=== PATIENT | male | born 1975 | race Caucasian/White ===

== ENCOUNTER 2021-09-17 14:54 | Observation (INO) ==
--- NOTE | 2021-09-17 15:24 | ED Triage Note ---
Date of Service September 17, 2021 History of Present Illness This patient was briefly evaluated while in triage. An abbreviated physical exam was performed. This patient is a 46-year-old Male with concerns of food poisoning starting last thursday. It started with symptoms shortly after eating a hoagie. He initially felt hot and cold, trouble sleeping. The following day he noted nausea, and decreased appetite. He notes a headache since onset of symptoms, fever, chills, occasional sweats. No abd pain. He notes a little diarrhea. No medical problems. Physical Exam GENERAL: 46 year old male. In no acute distress. SKIN: No lesions or rashes. HEART: Regular rate and rhythm. LUNGS: Clear to auscultation. ABDOMEN: Bowel sounds normoactive. No guarding or rigidity. No tenderness of palpation. NEURO: Alert and oriented. No deficits. MUSCULOSKELETAL: No deformities to inspection of the extremities. PSYCH: Patient is pleasant and answers all questions appropriately. Initial orders for labs and / or imaging were placed and patient was placed in the waiting area until a bed is available. Please see further documentation for the full ED course.
[2021-09-17 15:44] LABS: Basophils # (auto) 0.04 K/uL (0-0.2); Basophils % (auto) 0.4 %; Eosinophils # (auto) 0.01 K/uL (0-0.50); Eosinophils % (auto) 0.1 %; Hematocrit (blood only) 43.4 % (40.1-51.0); Hemoglobin 14.8 g/dl (14.0-18.0); Immature Granulocytes # (auto) 0.06 K/uL (0.00-0.02); Immature Granulocytes % (auto) 0.5 %; Lymphocytes # (auto) 0.47 K/uL (1.2-3.4); Lymphocytes % (auto) 4.1 %; Mean Corpuscular Hemoglobin 29.4 pg (25.0-34.0); Mean Corpuscular Hgb Conc 34.1 g/dL (32.0-36.0); Mean Corpuscular Volume 86.3 fL (80.0-100.0); Mean Platelet Volume 10.3 fL (9.4-12.4); Monocytes # (auto) 0.59 K/uL (0.24-0.82); Monocytes % (auto) 5.2 %; Neutrophils # (auto) 10.16 K/uL (1.4-6.5); Neutrophils % (auto) 89.7 %; Platelet Count 219 K/uL (130-400); RDW Coefficient of Variation 13.3 % (11.5-14.5); RDW Standard Deviation 41.6 fL (36.4-46.3); Red Blood Count 5.03 M/uL (4.63-6.08); White Blood Count 11.33 K/ul (4.8-10.8)
[2021-09-17 16:09] LABS: Albumin Level 3.7 gm/dl (3.4-5.0); BUN Creatinine Ratio 6.6 (10-20); Bilirubin,Total 0.6 mg/dl (0.2-1.0); Calcium 8.1 mg/dl (8.5-10.1); Est GFR (African American) 42.3 ml/min; Est GFR (Non-African American) 36.5 ml/min; Globulin 3.8 gm/dl (2.5-4.0); Magnesium 1.9 mg/dl (1.7-2.4); Total Protein 7.5 gm/dl (6.0-8.3)
--- NOTE | 2021-09-17 16:53 | Emergency Department Note ---
Impression & Plan DONNA (acute kidney injury), Diarrhea, Generally unwell ED Provider Note CHIEF COMPLAINT: Feeling generally unwell HISTORY OF PRESENT ILLNESS: Levi Ruiz is a 46 year old male with history of hypothyroidism who presents to the Emergency Department for evaluation as he has been feeling generally unwell over the past week. Initially, the patient states that he felt as if he got food poisoning after eating a hoagie. Since then, he has felt intermittently feverish/chilled with cold sweats, has had headaches, decreased appetite with poor PO intake, intermittent nausea and watery diarrhea. The patient denies specific abdominal pain and has not vomited. He also denies hematochezia or melena. He has had decreased output of urine but no dysuria or hematuria. Currently, the patient denies being in any specific pain but states that he just doesn't feel good. He also feels tired as he has not been sleeping well. He has not been taking any medications for his symptoms. He otherwise denies having chest pain, respiratory difficulties or palpitations. He has not been around anyone else who has been ill with similar symptoms. REVIEW OF SYSTEMS: 10 systems were reviewed and were negative unless otherwise stated in HPI as above PHYSICAL EXAM: VITALS: Vitals are noted on the nurse's note and reviewed by myself. Vital signs stable. General: Resting in bed, no acute distress HEENT: Normocephalic, PERRL, EOMI, mucous membranes moist, oropharynx clear without erythema, edema or exudates Neck: Supple, non-tender, no lymphadenopathy, FROM without pain, no meningismus Resp: Good inspiratory effort on room air, lung sounds clear bilaterally, chest wall non-tender CV: Regular rate and rhythm, normal S1-S2, peripheral pulses palpated Back: No tenderness to palpation of the bilateral CVA or flanks Abd: Obese, soft, non-tender to palpation, no rebound, guarding or rigidity MSK: Moving all extremities without apparent pain or difficulty Integumentary: Warm, dry, no appreciable rash Neuro: Awake, alert and oriented x 3, interacting and answering questions appropriately Differential diagnosis includes etiologies such as viral syndrome, COVID-19, urinary tract infection, sepsis, bacteremia, food poisoning, dehydration, electrolyte imbalances, diarrheal illness, DONNA, gastrointestinal pathology, among others were considered. EMERGENCY DEPARTMENT COURSE: Physical exam and history were performed. Nursing triage notes, EMR, and medication list were personally reviewed. Patient appears presents for evaluation as he has been feeling generally unwell with intermittent perceived fever/chills, headaches, decreased appetite with poor p.o. intake, intermittent nausea and watery diarrhea. Additional history as described above. See physical exam as noted above. The patient was offered medications. IV access was established. He was given Tylenol 1000 mg and 2 L NSS throughout his emergency department course. Labs were obtained and reviewed by myself as below. Of note, he does have leukocytosis with a WBC of 11.33. No concern for anemia with hemoglobin 14.8. Mild hyponatremia with sodium 134. Hypokalemia with potassium 3.0. Concerns for DONNA with creatinine 2.12. LFTs WNL. Lipase WNL. Stool culture ordered, pending collection. Urinalysis was obtained and was cloudy in appearance with 3+ protein, trace glucose, trace ketones, 1+ blood, 1+ bilirubin, trace leukocyte esterase, 1030 WBCs, greater than 30 hyaline casts and mucus present. Possible contamination with >30 epithelial cells. CAT scan of the abdomen/pelvis without contrast was obtained and reviewed by radiologist myself as below. The bladder wall appears circumferentially thickened and there was nonspecific bilateral perinephric stranding. Hepatomegaly and hepatic steatosis. Mild splenomegaly. Upon reevaluation, the patient was doing well but still had a headache. I discussed the results of the above findings with him at bedside. His work-up is concerning for DONNA. I do feel that he would benefit from continued monitoring in the hospital given this finding. I did call and speak to Dr. Hi of the [facility]. He agreed to evaluate the patient. The patient verbalizes understanding and agreement with the treatment plan as above. The chart was completed utilizing [employer] Speech Voice Recognition Software. Grammatical errors, random word insertions, pronoun errors, and incomplete sentences are an occasional consequence of this system due to software limitations, ambient noise, and hardware issues. Any formal questions or concerns about the content, text, or information contained within the body of this dictation should be directly addressed to the provider for clarification. Past Med/Surg History Medical History Hypothyroidism Surgical History (Updated 09/17/21 @ 21:35 by Patsy Burgos PA-C) No pertinent past surgical history Social History Smoking Status: Never smoker Preferred Language: [place] Feels Safe at Home: Yes Allergies Allergies Allergy/AdvReac Type Severity Reaction Status Date / Time No Known Allergies Allergy Mild Verified 09/17/21 18:50 Home Meds Home Medications Medication Instructions Recorded Confirmed levothyroxine 125 mcg tablet 125 mcg PO DAILY 09/17/21 09/17/21 (Euthyrox) Results & Data (ED) Vital Signs Vital Signs - 24 hr 09/17/21 15:21 09/17/21 16:30 09/17/21 16:31 Temperature 36.1 C L Temperature Source Temporal Artery Scan Pulse Rate 114 H 101 H Pulse Rate [Finger] Pulse Rate from SpO2 Sensor 98 H Pulse Rhythm Regular Pulse Strength Normal Respiratory Rate 20 24 Respiratory Effort / Characteristics Non-Labored Spontaneous Respiratory Depth Normal Respiratory Pattern Regular Blood Pressure 129/83 145/77 H Blood Pressure [Right Arm] Blood Pressure Mean 98 99 Blood Pressure Mean [Right Arm] Blood Pressure Position Sitting Pulse Oximetry 95 95 Oxygen Delivery Method Room Air Sepsis Recent Fever Within 48 Hours Yes Sepsis New/Unexplained Change in Mental Status No Sepsis Action Taken by Nursing No Action Required 09/17/21 17:00 09/17/21 17:00 09/17/21 17:34 Temperature Temperature Source Pulse Rate 96 H Pulse Rate [Finger] Pulse Rate from SpO2 Sensor 98 H 94 H Pulse Rhythm Pulse Strength Respiratory Rate 25 H Respiratory Effort / Characteristics Respiratory Depth Respiratory Pattern Blood Pressure 178/93 H Blood Pressure [Right Arm] Blood Pressure Mean 121 Blood Pressure Mean [Right Arm] Blood Pressure Position Pulse Oximetry 95 93 Oxygen Delivery Method Sepsis Recent Fever Within 48 Hours Sepsis New/Unexplained Change in Mental Status Sepsis Action Taken by Nursing 09/17/21 17:35 09/17/21 17:35 09/17/21 18:00 Temperature Temperature Source Pulse Rate 97 H Pulse Rate [Finger] Pulse Rate from SpO2 Sensor 96 H Pulse Rhythm Pulse Strength Respiratory Rate 25 H Respiratory Effort / Characteristics Respiratory Depth Respiratory Pattern Blood Pressure 128/89 124/79 Blood Pressure [Right Arm] Blood Pressure Mean 102 94 Blood Pressure Mean [Right Arm] Blood Pressure Position Pulse Oximetry 94 Oxygen Delivery Method Sepsis Recent Fever Within 48 Hours Sepsis New/Unexplained Change in Mental Status Sepsis Action Taken by Nursing 09/17/21 18:00 09/17/21 18:30 09/17/21 18:30 Temperature Temperature Source Pulse Rate 87 86 Pulse Rate [Finger] Pulse Rate from SpO2 Sensor 86 85 Pulse Rhythm Pulse Strength Respiratory Rate 38 H 25 H Respiratory Effort / Characteristics Respiratory Depth Respiratory Pattern Blood Pressure 123/82 Blood Pressure [Right Arm] Blood Pressure Mean 95 Blood Pressure Mean [Right Arm] Blood Pressure Position Pulse Oximetry 96 98 Oxygen Delivery Method Sepsis Recent Fever Within 48 Hours Sepsis New/Unexplained Change in Mental Status Sepsis Action Taken by Nursing 09/17/21 20:00 Temperature Temperature Source Pulse Rate Pulse Rate [Finger] 88 Pulse Rate from SpO2 Sensor Pulse Rhythm Pulse Strength Respiratory Rate 18 Respiratory Effort / Characteristics Respiratory Depth Respiratory Pattern Blood Pressure Blood Pressure [Right Arm] 131/79 Blood Pressure Mean Blood Pressure Mean [Right Arm] 96 Blood Pressure Position Pulse Oximetry 98 Oxygen Delivery Method Room Air Sepsis Recent Fever Within 48 Hours Sepsis New/Unexplained Change in Mental Status Sepsis Action Taken by Nursing Laboratory Data Result diagrams: 09/17/21 15:35 09/17/21 15:35 Lab Results 09/17/21 09/17/21 09/17/21 Range/Units 15:35 15:35 16:25 WBC 11.33 H (4.8-10.8) K/ul RBC 5.03 (4.63-6.08) M/uL Hgb 14.8 (14.0-18.0) g/dl Hct 43.4 (40.1-51.0) % MCV 86.3 (80.0-100.0) fL MCH 29.4 (25.0-34.0) pg MCHC 34.1 (32.0-36.0) g/dL RDW Std Deviation 41.6 (36.4-46.3) fL RDW Coeff of Fredis 13.3 (11.5-14.5) % Plt Count 219 (130-400) K/uL MPV 10.3 (9.4-12.4) fL Immature Gran % (Auto) 0.5 % Neut % (Auto) 89.7 % Lymph % (Auto) 4.1 % Dickens % (Auto) 5.2 % Eos % (Auto) 0.1 % Baso % (Auto) 0.4 % Neut # (Auto) 10.16 H (1.4-6.5) K/uL Lymph # (Auto) 0.47 L (1.2-3.4) K/uL Dickens # (Auto) 0.59 (0.24-0.82) K/uL Eos # (Auto) 0.01 (0-0.50) K/uL Baso # (Auto) 0.04 (0-0.2) K/uL Immature Gran # (Auto) 0.06 H (0.00-0.02) K/uL Sodium 134 L (136-145) mmol/L Potassium 3.0 L (3.5-5.1) mmol/L Chloride 97 L (98-107) mmol/L Carbon Dioxide 27 (21-32) mmol/L Anion Gap 10 (3-11) BUN 14 (6-23) mg/dl Creatinine 2.12 H (0.6-1.4) mg/dl Est Cr Clr Drug Dosing 64.0 ml/min Est GFR ( Amer) 42.3 ml/min Est GFR (Non-Af Amer) 36.5 ml/min BUN/Creatinine Ratio 6.6 L (10-20) Glucose 148 H (70-99(Fasting)) mg/dl Calcium 8.1 L (8.5-10.1) mg/dl Magnesium 1.9 (1.7-2.4) mg/dl Total Bilirubin 0.6 (0.2-1.0) mg/dl AST 23 (13-39) U/L ALT 44 (7-52) U/L Alkaline Phosphatase 78 (34-104) U/L Total Protein 7.5 (6.0-8.3) gm/dl Albumin 3.7 (3.4-5.0) gm/dl Globulin 3.8 (2.5-4.0) gm/dl Albumin/Globulin Ratio 1.0 (0.9-2) Lipase 11 (11-82) U/L Urine Color Urine Appearance (Clear) Urine pH (4.5-7.5) Ur Specific [place] (1.000-1.030) Urine Protein (Negative) Urine Glucose (UA) (Negative) Urine Ketones (Negative) Urine Blood (Negative) Urine Nitrite (Negative) Urine Bilirubin (Negative) Urine Urobilinogen (Negative) Ur Leukocyte Esterase (Negative) Urine WBC (Auto) (0-5) /hpf Urine RBC (Auto) (0-4) /hpf U Hyaline Cast (Auto) (0-5) /lpf U Epithel Cells (Auto) (0-5) /lpf Urine Bacteria (Auto) (Negative) Ur Renal Epithelial Cell Urine Mucus (None Prsent) Urine Yeast SARS-CoV-2, RNA, NAAT NEGATIVE (NEGATIVE) 09/17/21 Range/Units 17:27 WBC (4.8-10.8) K/ul RBC (4.63-6.08) M/uL Hgb (14.0-18.0) g/dl Hct (40.1-51.0) % MCV (80.0-100.0) fL MCH (25.0-34.0) pg MCHC (32.0-36.0) g/dL RDW Std Deviation (36.4-46.3) fL RDW Coeff of Fredis (11.5-14.5) % Plt Count (130-400) K/uL MPV (9.4-12.4) fL Immature Gran % (Auto) % Neut % (Auto) % Lymph % (Auto) % Dickens % (Auto) % Eos % (Auto) % Baso % (Auto) % Neut # (Auto) (1.4-6.5) K/uL Lymph # (Auto) (1.2-3.4) K/uL Dickens # (Auto) (0.24-0.82) K/uL Eos # (Auto) (0-0.50) K/uL Baso # (Auto) (0-0.2) K/uL Immature Gran # (Auto) (0.00-0.02) K/uL Sodium (136-145) mmol/L Potassium (3.5-5.1) mmol/L Chloride (98-107) mmol/L Carbon Dioxide (21-32) mmol/L Anion Gap (3-11) BUN (6-23) mg/dl Creatinine (0.6-1.4) mg/dl Est Cr Clr Drug Dosing ml/min Est GFR ( Amer) ml/min Est GFR (Non-Af Amer) ml/min BUN/Creatinine Ratio (10-20) Glucose (70-99(Fasting)) mg/dl Calcium (8.5-10.1) mg/dl Magnesium (1.7-2.4) mg/dl Total Bilirubin (0.2-1.0) mg/dl AST (13-39) U/L ALT (7-52) U/L Alkaline Phosphatase (34-104) U/L Total Protein (6.0-8.3) gm/dl Albumin (3.4-5.0) gm/dl Globulin (2.5-4.0) gm/dl Albumin/Globulin Ratio (0.9-2) Lipase (11-82) U/L Urine Color Dark Yellow Urine Appearance Cloudy A (Clear) Urine pH 5.5 (4.5-7.5) Ur Specific [place] 1.020 (1.000-1.030) Urine Protein 3+ H (Negative) Urine Glucose (UA) Trace H (Negative) Urine Ketones Trace H (Negative) Urine Blood 1+ H (Negative) Urine Nitrite Negative (Negative) Urine Bilirubin 1+ H (Negative) Urine Urobilinogen Negative (Negative) Ur Leukocyte Esterase Trace H (Negative) Urine WBC (Auto) 10-30 H (0-5) /hpf Urine RBC (Auto) 0-4 (0-4) /hpf U Hyaline Cast (Auto) >30 H (0-5) /lpf U Epithel Cells (Auto) >30 H (0-5) /lpf Urine Bacteria (Auto) Negative (Negative) Ur Renal Epithelial Cell Not Reportable Urine Mucus Present A (None Prsent) Urine Yeast Not Reportable SARS-CoV-2, RNA, NAAT (NEGATIVE) Administered Medications Discontinued Medications Acetaminophen (Acetaminophen 500 Mg Tab) 1,000 mg PO NOW STA Stop: 09/17/21 19:56 Last Admin: 09/17/21 20:05 Dose: 1,000 mg Documented By: ROSA Sodium Chloride (Nss 1000ml) 1,000 mls @ 999 mls/hr IV .Q1H1M MEREDITH Stop: 09/17/21 18:09 Last Infusion: 09/17/21 18:41 Dose: 0 mls/hr Documented By: Admin: 09/17/21 17:32 Dose: 999 mls/hr Documented By: [id number] Sodium Chloride (Nss 1000ml) 1,000 mls @ 999 mls/hr IV .Q1H1M MEREDITH Stop: 09/17/21 20:56 Last Admin: 09/17/21 20:05 Dose: 999 mls/hr Documented By: Imaging Data Radiologist's Impression: Abdomen/Pelvis CT 09/17/21 17:08 CT SCAN OF THE ABDOMEN AND PELVIS WITHOUT IV CONTRAST CLINICAL HISTORY: Diarrhea. Loss of appetite. Renal insufficiency. COMPARISON STUDY: No priors. TECHNIQUE: CT scan of the abdomen and pelvis is performed from the lung bases to the proximal femora. Images are reviewed in the axial, sagittal, and coronal planes. IV contrast was not administered for this examination due to poor renal function. Note that the examination is suboptimal without oral and IV contrast. A dose lowering technique was utilized adhering to the principles of ALARA. CT DOSE: 1656.41 mGy.cm FINDINGS: Lung bases: The heart is normal in size and without pericardial effusion. The lung bases are clear noting dependent atelectasis. A small hiatal hernia is observed. Liver: The unenhanced liver is enlarged, measuring 22.0 cm in length. The liver demonstrates diffusely diminished attenuation consistent with hepatic steatosis. There is no intrahepatic biliary ductal dilatation. Gallbladder: Unremarkable. Spleen: The spleen is mildly enlarged measuring 14.5 cm in length. Pancreas: Unremarkable. Adrenal glands: Unremarkable. Kidneys: The unenhanced kidneys are normal in size and without hydronephrosis. There are no renal calculi identified. There is no evidence of contour deforming renal mass lesion. There is mild nonspecific bilateral perinephric stranding. Abdominal vasculature: The abdominal aorta is normal in course and caliber. Bowel: There is no bowel obstruction. The appendix is not visualized. Peritoneum: There is no intraperitoneal free air or abdominal ascites. There is a small fat-containing umbilical hernia. Lymphadenopathy: None. Pelvic viscera: The bladder wall appears circumferentially thickened. The prostate and seminal vesicles are normal as visualized. Skeletal structures: No lytic or blastic lesions are seen. Mild sclerotic change is seen in the sacroiliac joints. IMPRESSION: 1. The bladder wall appears circumferentially thickened and there is nonspecific bilateral perinephric stranding. Correlate with clinical findings and urinalysis. 2. Hepatomegaly and hepatic steatosis. 3. Mild splenomegaly. 4. Nonvisualization of the appendix. 5. Additional findings as above. ACT 112: Negative or not required by law. Electronically signed by: Owen French M.D. 09/17/2021 7:40 PM Discharge Plan Visit Data Chief Complaint: Nausea Stated Complaint: NAUSEA, VOMITING, CHILLS, FEVER ED Provider: Robby Cohn ED Midlevel Provider: Patsy Burgos Discharge Problem: DONNA (acute kidney injury), Diarrhea, Generally unwell Patient Disposition: Admitted As Inpatient Forms Stand Alone Forms: [facility] Prescriptions Prescriptions: No Action levothyroxine [Euthyrox] 125 mcg tablet 125 mcg PO DAILY Referrals Referrals: Terence Méndez MD [Primary Care Provider] -
[2021-09-17] MEDS ORDERED: SODIUM CHLORIDE 0.9% 1000ML 1,000 ML IV SCH ×2 (17:09→19:56)
[2021-09-17 18:14] LABS: Appearance Urine Cloudy (Clear); Bacteria Urine Automated Negative (Negative); Blood Urine 1+ (Negative); Color Urine Dark Yellow; Epithelial Cell Urine Auto >30 /lpf (0-5); Glucose Urine UA Trace (Negative); Ketones Urine Trace (Negative); Leukocyte Esterase Urine Trace (Negative); Nitrite Urine Negative (Negative); Protein Urine 3+ (Negative); RBC Urine Automated 0-4 /hpf (0-4); Urobilinogen Urine Negative (Negative); pH Urine 5.5 (4.5-7.5)
[2021-09-17 18:29] LABS: Bilirubin Urine 1+ (Negative)
[2021-09-17 18:56] LABS: Cast Urine Automated >30 /lpf (0-5); Mucus Urine Present (None Prsent)
--- NOTE | 2021-09-17 19:42 | CT Scan Report ---
CT SCAN OF THE ABDOMEN AND PELVIS WITHOUT IV CONTRAST CLINICAL HISTORY: Diarrhea. Loss of appetite. Renal insufficiency. COMPARISON STUDY: No priors. TECHNIQUE: CT scan of the abdomen and pelvis is performed from the lung bases to the proximal femora. Images are reviewed in the axial, sagittal, and coronal planes. IV contrast was not administered for this examination due to poor renal function. Note that the examination is suboptimal without oral an d IV contrast. A dose lowering technique was utilized adhering to the principles of ALARA. CT DOSE: 1656.41 mGy.cm FINDINGS: Lung bases: The heart is normal in size and without pericardial effusion. The lung bases are clear no ting dependent atelectasis. A small hiatal hernia is observed. Liver: The unenhanced liver is enlarged, measuring 22.0 cm in length. The liver demonstrates diffusel y diminished attenuation consistent with hepatic steatosis. There is no intrahepatic biliary ductal d ilatation. Gallbladder: Unremarkable. Spleen: The spleen is mildly enlarged measuring 14.5 cm in length. Pancreas: Unremarkable. Adrenal glands: Unremarkable. Kidneys: The unenhanced kidneys are normal in size and without hydronephrosis. There are no renal nick culi identified. There is no evidence of contour deforming renal mass lesion. There is mild nonspecif ic bilateral perinephric stranding. Abdominal vasculature: The abdominal aorta is normal in course and caliber. Bowel: There is no bowel obstruction. The appendix is not visualized. Peritoneum: There is no intraperitoneal free air or abdominal ascites. There is a small fat-containin g umbilical hernia. Lymphadenopathy: None. Pelvic viscera: The bladder wall appears circumferentially thickened. The prostate and seminal vesicl es are normal as visualized. Skeletal structures: No lytic or blastic lesions are seen. Mild sclerotic change is seen in the sacro iliac joints. IMPRESSION: 1. The bladder wall appears circumferentially thickened and there is nonspecific bilateral perinephri c stranding. Correlate with clinical findings and urinalysis. 2. Hepatomegaly and hepatic steatosis. 3. Mild splenomegaly. 4. Nonvisualization of the appendix. 5. Additional findings as above. ACT 112: Negative or not required by law. Electronically signed by: Owen French M.D. 09/17/2021 7:40 PM
[2021-09-17] MEDS ORDERED: ACETAMINOPHEN 500 MG TAB PO STA (19:55)
--- NOTE | 2021-09-17 21:09 | History & Physical Report ---
Date of Service September 17, 2021 Assessment & Plan (1) Diarrhea: Plan: 46yo male with a history of hypothyroidism presents with a one-week history of fever, chills, headache, nausea, diarrhea, and poor appetite. Fever, chills, nausea, diarrhea, poor appetite Vitals upon arrival notable for intermittently elevated BP, tachycardia (114), and tachypnea; patient afebrile, SpO2 adequate on room air Initial labs were notable for mild leukocytosis (11.3), mild hyponatremia (134), mild hypokalemia (3.0), and elevated creatinine (2.12) UA questionably contaminated but was otherwise notable for 3+ protein, 1+ blood, trace leuk esterase, 10-30 WBCs, and >30 hyaline casts; patient denies dysuria CT abdomen/pelvis showed circumferential bladder wall thickening with nonspecific bilateral perinephric stranding, hepatomegaly and hepatic steatosis, and mild splenomegaly Differential broad but includes viral gastroenteritis, UTI, bacteremia, others In the ED, patient received NSS 1L bolus (x2) and APAP 1000mg (x1) Stool culture, urine culture, blood cultures pending Ceftriaxone as noted below NSS @ 125mL/hr (x2 bags ordered) APAP 1000mg q8h as-needed for fever or pain Zofran as-needed for nausea Trend daily CBC, BMP, magnesium, phosphorous UTI vs asymptomatic bacteriuria UA questionably contaminated but was otherwise notable for 3+ protein, 1+ blood, trace leuk esterase, 10-30 WBCs, and >30 hyaline casts; patient denies dysuria Patient endorses slightly reduced urinary frequency but no burning with urination or urinary urgency, incomplete voiding, or mally hematuria CT abdomen/pelvis showed circumferential bladder wall thickening with nonspecific bilateral perinephric stranding Despite absent urinary symptoms, given findings on UA, imaging, and mild leukocytosis, will treat as UTI Avoiding oral bactrim due to potential interaction between trimethoprim and oral potassium supplementation Ceftriaxone 1g IV daily (x3 days), transition to oral when appropriate Trend daily CBC DONNA vs CKD Creatinine on admission 2.12, baseline unknown Suspect pre-renal etiology given poor PO intake and diarrhea over the past week IVF as above Trend daily BMP, avoid nephrotoxins, encourage PO intake Hypokalemia Potassium on admission 3.0, suspected secondary to GI losses and poor PO intake; serum magnesium wnl EKG pending KCl 20mEq PO q2h (x4 doses) ordered Repeat BMP and serum magnesium in AM, additional repletion as needed Hypothyroidism Serum TSH ordered for AM; no prior records on hand Continue home levothyroxine 125mcg daily HbA1c and fasting lipid profile ordered for AM FEN: regular diet, NSS @ 125mL/hr (x2 bags ordered) Code status: full code DVT ppx: SCDs Held home meds: none Dispo: med/surg (2) DONNA (acute kidney injury): (3) Generally unwell: (4) Hypokalemia: (5) Hypocalcemia: (6) Nausea: History of Present Illness Primary Care Provider: Terence Méndez MD 46yo male with a history of hypothyroidism presents with a one-week history of fever, chills, headache, nausea, diarrhea, and poor appetite. Patient thought he had food poisoning after eating a hoagie last week, but his symptoms have not resolved. Diarrhea has been intermittent and watery, only 1-3 episodes per day, not oily or greasy, no blood in stool noted. Denies abdominal pain or vomiting. Patient has had a poor appetite and poor fluid intake - has been urinating less frequently than normal, but denies pain with urination, urinary urgency, incomplete voiding, or hematuria. No flank pain. Patient denies vision changes, CP, palpitations, SOB, dizziness, numbness, tingling, weakness, or other symptoms. Denies recent illness and recent travel. Vitals upon arrival were notable for intermittently elevated BP, tachycardia (114), and tachypnea. Patient was afebrile and SpO2 was adequate on room air. Initial labs were notable for mild leukocytosis (11.3), mild hyponatremia (134), mild hypokalemia (3.0), and elevated creatinine (2.12). UA was possibly contaminated given epithelial cells but was otherwise notable for 3+ protein, 1+ blood, trace leuk esterase, 10-30 WBCs, and >[address] abdomen/pelvis showed circumferential bladder wall thickening with nonspecific bilateral perinephric stranding, hepatomegaly and hepatic steatosis, and mild splenomegaly. In the ED, patient received NSS 1L bolus (x2) and APAP 1000mg (x1). Surrogate decision-maker in case of an emergency: Jesusita Ruiz (cell: [phone]) Allergies Allergy/AdvReac Type Severity Reaction Status Date / Time No Known Allergies Allergy Mild Verified 09/17/21 18:50 Home Medications Medication Instructions Recorded Confirmed Type levothyroxine 125 mcg tablet 125 mcg PO DAILY 09/17/21 09/17/21 History (Euthyrox) cefdinir 300 mg capsule 300 mg PO BID 4 days #8 caps 09/18/21 Rx Past Med/Surg History Medical History (Updated 09/17/21 @ 22:17 by Zeke Lin MD) Hypothyroidism Surgical History (Updated 09/17/21 @ 21:35 by Patsy Burogs PA-C) No pertinent past surgical history Social History Smoking Status: Never smoker Hx Alcohol Use: Yes Alcohol type: beer and wine Hx Substance Use: No Preferred Language: Luxembourger Communication Ability: Effective 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: No Beliefs That Will Affect Care: None Current Living Situation: Alone Feels Safe at Home: Yes Assistive Devices: None Physical Exam Physical Exam: Constitutional: well-appearing, no acute distress HEENT: NCAT, no conjunctival injection, MMM CV: regular rhythm, no murmur appreciated, extremities well-perfused, no LE edema Resp: CTABL, no wheezes/rales/rhonchi appreciated, no increased work of breathing GI: soft, nondistended, nontender, BS normoactive MSK: no flank tenderness Skin: warm, dry, no rash appreciated Neuro: alert, oriented, no focal neurologic deficit appreciated Results & Data Results & Data ([facility]) Vital Signs (Past 12 Hours) Vital Signs Temp Pulse Pulse Resp BP BP Pulse Ox 09/17/21 20:00 88 18 131/79 98 09/17/21 18:30 86 25 H 98 09/17/21 18:30 123/82 09/17/21 18:00 87 38 H 96 09/17/21 18:00 124/79 09/17/21 17:35 97 H 25 H 94 09/17/21 17:35 128/89 09/17/21 17:34 93 09/17/21 17:00 96 H 25 H 95 09/17/21 17:00 178/93 H 09/17/21 16:31 101 H 24 95 09/17/21 16:30 145/77 H 09/17/21 15:21 36.1 C L 114 H 20 129/83 95 O2 Del Method 09/17/21 20:00 Room Air 09/17/21 18:30 09/17/21 18:30 09/17/21 18:00 09/17/21 18:00 09/17/21 17:35 09/17/21 17:35 09/17/21 17:34 09/17/21 17:00 09/17/21 17:00 09/17/21 16:31 09/17/21 16:30 09/17/21 15:21 Room Air Supervising Physician Co-Signing Physician Notes Attending addendum: I have physically seen this patient, have supervised the medical residents activities, and agree with the H&P unless as otherwise noted. Assessment and Plan: Fevers/chills/nausea/diarrhea/poor appetite- CT abdomen and pelvis suggest potential urinary issue, along with hepatomegaly and hepatic steatosis and mild splenomegaly Differential including food ingestion, viral gastroenteritis prior, UTI, bacteremia and others Follow-up cultures: Stool, urine and blood NSS at 125 MLS per hour x2 additional liters Ceftriaxone 2 g IV daily Renal insufficiency/presumed acute- Creatinine 2.12 upon admission with unknown baseline IV fluids as noted above, and recheck laboratories in a.m. Hypokalemia- Sodium 3.0 upon admission Replete potassium and recheck laboratories in a.m. Remaining orders and notations as noted Resident Activity Tracking Resident Involvement: Resident Care Provided and Ear Nose And Throat Specialist Coverage Note Care Provided: Adult Hospital Medicine
[2021-09-17] MEDS ORDERED: MELATONIN 3 MG TAB PO PRN (22:03)
[2021-09-17] MEDS ORDERED: ACETAMINOPHEN 500 MG TAB PO PRN (22:03)
[2021-09-17] MEDS ORDERED: ONDANSETRON INJ 2 MG/ML 2 ML VIAL IV PRN (22:10)
[2021-09-17] MEDS ORDERED: LACTATED RINGER'S 1,000 ML IV SCH (22:15)
[2021-09-17] MEDS ORDERED: cefTRIAXone SODIUM 2,000 MG in DEXTROSE 5% 50 ML IV SCH (23:00)
[2021-09-17] MEDS: POTASSIUM CHLORIDE CRTAB 20 MEQ TABCR PO SCH (23:15)
[2021-09-18] MEDS: SODIUM CHLORIDE 0.9% 1000ML 1,000 ML IV SCH ×2 (00:10→06:04)
[2021-09-18] MEDS: POTASSIUM CHLORIDE CRTAB 20 MEQ TABCR PO SCH ×3 (00:28→04:22)
[2021-09-18] MEDS ORDERED: LEVOTHYROXINE SODIUM 125 MCG TABLET PO SCH (06:30)
[2021-09-18 07:11] LABS: Basophils # (auto) 0.02 K/uL (0-0.2); Basophils % (auto) 0.2 %; Hematocrit (blood only) 35.7 % (40.1-51.0); Hemoglobin 12.5 g/dl (14.0-18.0); Immature Granulocytes # (auto) 0.08 K/uL (0.00-0.02); Immature Granulocytes % (auto) 0.8 %; Lymphocytes # (auto) 0.42 K/uL (1.2-3.4); Lymphocytes % (auto) 4.3 %; Mean Corpuscular Hemoglobin 29.6 pg (25.0-34.0); Mean Corpuscular Volume 84.4 fL (80.0-100.0); Mean Platelet Volume 10.3 fL (9.4-12.4); Monocytes # (auto) 0.61 K/uL (0.24-0.82); Monocytes % (auto) 6.3 %; Neutrophils # (auto) 8.62 K/uL (1.4-6.5); Neutrophils % (auto) 88.4 %; Platelet Count 199 K/uL (130-400); RDW Coefficient of Variation 13.3 % (11.5-14.5); RDW Standard Deviation 41.6 fL (36.4-46.3); Red Blood Count 4.23 M/uL (4.63-6.08); White Blood Count 9.75 K/ul (4.8-10.8)
[2021-09-18 07:30] LABS: Estimated Average Glucose 123 mg/dl; Hemoglobin A1C 5.9 % (4.5-5.6)
[2021-09-18 07:49] LABS: BUN Creatinine Ratio 9.5 (10-20); Calcium 7.1 mg/dl (8.5-10.1); Creatinine Clr Calc Pharmacy 75.5 ml/min; Est GFR (African American) 51.9 ml/min; Est GFR (Non-African American) 44.8 ml/min; Magnesium 1.7 mg/dl (1.7-2.4); Potassium 2.9 mmol/L (3.5-5.1)
[2021-09-18] MEDS ORDERED: POTASSIUM CHLORIDE CRTAB 20 MEQ TABCR PO STA (10:03)
--- NOTE | 2021-09-18 10:53 | Electrocardiogram Report ---
Test Reason : Blood Pressure : / mmHG Vent. Rate : 075 BPM Atrial Rate : 075 BPM P-R Int : 148 ms QRS Dur : 104 ms QT Int : 410 ms P-R-T Axes : 050 027 020 degrees QTc Int : 457 ms Normal sinus rhythm Normal ECG No previous ECGs available Confirmed by Jose E Carson ([id number]) on 09/18/2021 10:53:13 AM Referred By: REFERRED SELF Confirmed By:Stanley Carson
--- NOTE | 2021-09-18 12:01 | Discharge Summary ---
Date of Service September 18, 2021 Admission HPI Per Admitting Provider 46yo male with a history of hypothyroidism presents with a one-week history of fever, chills, headache, nausea, diarrhea, and poor appetite. Patient thought he had food poisoning after eating a hoagie last week, but his symptoms have not resolved. Diarrhea has been intermittent and watery, only 1-3 episodes per day, not oily or greasy, no blood in stool noted. Denies abdominal pain or vomiting. Patient has had a poor appetite and poor fluid intake - has been urinating less frequently than normal, but denies pain with urination, urinary urgency, incomplete voiding, or hematuria. No flank pain. Patient denies vision changes, CP, palpitations, SOB, dizziness, numbness, tingling, weakness, or other symptoms. Denies recent illness and recent travel. Vitals upon arrival were notable for intermittently elevated BP, tachycardia (114), and tachypnea. Patient was afebrile and SpO2 was adequate on room air. Initial labs were notable for mild leukocytosis (11.3), mild hyponatremia (134), mild hypokalemia (3.0), and elevated creatinine (2.12). UA was possibly contaminated given epithelial cells but was otherwise notable for 3+ protein, 1+ blood, trace leuk esterase, 10-30 WBCs, and >[address] abdomen/pelvis showed circumferential bladder wall thickening with nonspecific bilateral perinephric stranding, hepatomegaly and hepatic steatosis, and mild splenomegaly. In the ED, patient received NSS 1L bolus (x2) and APAP 1000mg (x1). Surrogate decision-maker in case of an emergency: Jesusita Ruiz (cell: [phone]) Admission Exam Per Admitting Provider Constitutional: well-appearing, no acute distress HEENT: NCAT, no conjunctival injection, MMM CV: regular rhythm, no murmur appreciated, extremities well-perfused, no LE edema Resp: CTABL, no wheezes/rales/rhonchi appreciated, no increased work of yohan thing GI: soft, nondistended, nontender, BS normoactive MSK: no flank tenderness Skin: warm, dry, no rash appreciated Neuro: alert, oriented, no focal neurologic deficit appreciated Principal Diagnosis Viral gastroenteritis Discharge Exam Constitutional: well-appearing, no acute distress, obese HEENT: NCAT, no conjunctival injection, MMM CV: regular rhythm, no murmur appreciated, extremities well-perfused, no LE edema Resp: CTABL, no wheezes/rales/rhonchi appreciated, no increased work of breathing GI: soft, nondistended, nontender, BS normoactive MSK: no flank tenderness Skin: warm, dry, no rash appreciated Neuro: alert, oriented, no focal neurologic deficit appreciated Discharge Data Allergies Allergy/AdvReac Type Severity Reaction Status Date / Time No Known Allergies Allergy Mild Verified 09/17/21 18:50 Consultations 09/17/21 20:05 ED Decision to Admit Stat Ordered Studies 09/17/21 17:08 CT abd pelvis wo con Stat Hospital Course (1) Diarrhea: 46yo male with a history of hypothyroidism presents with a one-week history of fever, chills, headache, nausea, diarrhea, and poor appetite. Fever, chills, nausea, diarrhea, poor appetite Suspect this was most likely due to foodborne illness Significant improvement in symptoms noted with IVF Hemodynamically stable at time of discharge Administered ceftriaxone in hospital, discharged on cefdinir 300 mg BID to complete 5 day course as above for enteritis UTI vs asymptomatic bacteriuria UA questionably contaminated but was otherwise notable for 3+ protein, 1+ blood, trace leuk esterase, 10-30 WBCs, and >30 hyaline casts; patient denies dysuria Patient endorses slightly reduced urinary frequency but no burning with urination or urinary urgency, incomplete voiding, or mally hematuria CT abdomen/pelvis showed circumferential bladder wall thickening with nonspecific bilateral perinephric stranding Despite absent urinary symptoms, given findings on UA, imaging, and mild leukocytosis, initiated treatment for UTI Continue cefdinir on discharge as above for potential cystitis Recommend further urologic evaluation, potential cystoscopy if urinary symptoms develop after discharge DONNA Creatinine on admission 2.12, baseline unknown Suspect pre-renal etiology given poor PO intake and diarrhea over the past week Cr improving to 1.79 at time of discharge Hypokalemia Potassium on admission 2.9, suspected secondary to GI losses and poor PO intake; serum magnesium wnl EKG unremarkable Repleting with oral potassium Recommend repeat BMP as outpatient Hypothyroidism TSH 1.2 Continued home levothyroxine 125mcg daily Prediabetes -A1C 5.9% on admission Hyperlipidemia -Total cholesterol 102, LDL 43, HDL 6, triglycerides 253 -Recommend repeat lipid panel as outpatient as HDL 6 may be inaccurate (2) DONNA (acute kidney injury): (3) Generally unwell: (4) Hypokalemia: (5) Hypocalcemia: (6) Nausea: Total Time Total Time Spent Total Time Spent (In Minutes): 30 Discharge Plan Discharge Items Patient Disposition: Home - Self-Care Reason For Visit: NAUSEA, FEVER,DIARRHEA, DONNA, HYPOKALEMIA Discharge Diagnosis: Enteritis Activity: Resume your previous activity Non-emergency contact: Primary Care Provider Call non-emergency contact if: you have any medication questions, your symptoms worsen, your pain is worsening and you have a fever Follow-up/Referrals: Terence Méndez MD [Primary Care Provider] - 09/24/21 9:15 am ([employer] with Gibran Valdivia PA-C) Diet: Regular Addtl Attending Provider Instructions: You were admitted to the hospital for enteritis, an infection of your intestines from likely food poisoning. You were treated with fluids for hydration and antibiotics. You were also noted on a CT scan to have some bladder wall inflammation. You weren't having significant urinary symptoms but if you notice burning urination, bloody urine or painful urination, please alert your PCP because you may need further evaluation of your bladder. A discharge summary will be sent to your primary care physician to ensure continuity of care. Please bring this discharge summary with you to your next office appointment so that your provider can review it at that time. Follow-up appointments: Make a follow-up appointment with your PCP within the next week. It is very important that you follow up with them shortly after discharge from the hospital. Medications: Your medication list has been reviewed and reconciled upon discharge to ensure accuracy and continuity of care. An updated list of all your medications is included with your hospital discharge paperwork. Please review this list closely, and make note of any changes. We sent a medication called Cefdinir to your pharmacy. Please take it twice a day for 4 more days to treat the remainder of your intestinal infection. Take your medications as instructed; do not skip a dose of your medicines. Make sure all of your doctors know every medicine you are taking (including kepl-ftp-ijclqwj medicines, vitamins, and supplements). Call your primary care provider before taking any new medicines (including bbzt-tqd-lwcexyg medicines, vitamins, and supplements), because some of these may interact with your current medications, or may make your symptoms worse. Tell your primary care provider if you cannot afford your medications. CONTACT YOUR PRIMARY CARE PROVIDER if you experience any of the following: Fever Diarrhea Nausea Vomiting Fatigue Difficulty following your treatment plan, or difficulty taking medications CALL 911 OR GO TO THE EMERGENCY DEPARTMENT if you experience any of the following: Sudden, severe abdominal pain or nausea/vomiting Severe chest pain, or chest pain that radiates (moves) to your jaw or arm Sudden, severe shortness of breath or difficulty breathing Thank you for allowing us to participate in your care. Pending Studies at Discharge: No Stand-Alone Forms: My [facility] [employer], Smoking Cessation Medications and DC Order Prescriptions: New cefdinir 300 mg capsule 300 mg PO BID 4 Days Qty: 8 0RF Continued levothyroxine [Euthyrox] 125 mcg tablet 125 mcg PO DAILY Discharge Orders: Discharge Order (Routine); Ordered 09/18/21 Ordered By: Xu Gardner/Other Patient Handouts: Acute Kidney Failure Dc Admission Data Admit Date/Time: 09/17/21 22:10 Attending Provider: Quang Mcgregor Admit Provider: Zeke Lin Primary Care Provider: Terence Méndez Other Providers: Edenilson Hi Other Interventions: Discharge Summary Assessment (RN) Last Done: 09/18/21 16:21 Supervising Physician Co-Signing Physician Notes I personally examined the patient and verified all hartley points of history and exam, discussed case, and agree with decision making with Dr Chase. Feeling better. Feels up to going home. Still has a little bit of a headachebut not the worst of his life, no photophobia phonophobia, no neck stiffness. Vitals noted, in general he is awake and alert pleasant no distress. HEENT normocephalic atraumatic mucous membranes moist. Breathing unlabored no accessory muscle use good effort. Suboccipitals not tight or tender. Neuro shows cranial nerves II through XII be grossly intact gross motor and sensory are intact. Mental status intact and appropriate. Infectious enteritisgiven durationalmost certainly bacterialI suspect that his improvement was related to the ceftriaxone. Safe for homefinish course with cefdinir. AKIsuspect on CKD 2this is not clearour most recent labs available for him a re from 2006 with a creatinine of 1.3it is now 1.71 5 years later, but also in the context of dehydration. At any rate, his p.o. intake is good, he is safe for homewould ask his PCP to repeat basic metabolic panel in the next few days to a week. Bladder thickening/stranding on CTabsolutely no urinary symptoms. No lower urinary tract symptoms consistent with BPH either. UA without microscopic hematuria/gross hematuria. Low risk situation overalloutpatient follow-up with PCP Dyslipidemia with markedly low HDLoutpatient PCP follow-up. Resident Activity Tracking Resident Involvement: Resident Care Provided Care Provided: [facility]
[2021-09-18] MEDS ORDERED: KETOROLAC TROMETHAMINE 15 MG/ML VIAL IV ONE (14:30)
[2021-09-18 18:44] LABS: BUN Creatinine Ratio 9.9 (10-20); Calcium 7.2 mg/dl (8.5-10.1); Creatinine Clr Calc Pharmacy 79.1 ml/min; Est GFR (African American) 54.8 ml/min; Est GFR (Non-African American) 47.3 ml/min; Potassium 3.5 mmol/L (3.5-5.1)
--- NOTE | 2021-09-18 18:54 | Billing Data ---
Date of Service September 18, 2021 Coding Level of Care Code 28353 OBS Care - Discharge
--- NOTE | 2021-09-19 04:18 | Billing Data ---
Date of Service September 19, 2021 Coding Level of Care Code INT OBSERVATION CARE 70M LVL 3
== END 2021-09-18 16:37 | disposition home or self-care (01) ==
LOC: 3N 14:54 → ED 14:54 → SUATTDRO 22:10 → 3N 23:48